=== PATIENT | female | born 1975 | race Caucasian/White ===

== ENCOUNTER 2018-02-01 11:51 | Observation (INO) ==
[2018-02-01 11:57] VITALS: TEMP 97.8
[2018-02-01 12:34] LABS: Baso % (Auto) 0.3 % (0.0-2.0); Eos % (Auto) 0.6 % (0.0-4.0); Hematocrit 39.9 % (35.0-46.0); Lymph # (Auto) 0.6 th/mm3 (1.0-4.8); Lymph % (Auto) 11.5 % (9.0-44.0); Mean Corpuscular HGB Conc 35.1 % (32.0-36.0); Mean Corpuscular Hemoglobin 33.1 pg (27.0-34.0); Mean Corpuscular Volume 94.1 fL (80.0-100.0); Mean Platelet Volume 7.9 fL (7.0-11.0); Mono # (Auto) 0.4 th/mm3 (0.0-0.9); Mono % (Auto) 8.1 % (0.0-8.0); Neut # (Auto) 4.3 th/mm3 (1.8-7.7); Neut % (Auto) 79.5 % (16.0-70.0); Platelet Count 155 th/mm3 (150-450); Red Blood Count 4.24 mil/mm3 (4.00-5.30); Red Cell Distribution Width 13.3 % (11.6-17.2); White Blood Count 5.3 th/mm3 (4.0-11.0)
[2018-02-01 12:38] LABS: Bilirubin,Urine Negative (Negative); Clarity,Urine Clear (Clear); Color,Urine Straw (Yellw/Straw); Glucose,Urine (UA) Negative (Negative); Leukocyte Esterase,Urine Negative (Negative); Nitrite,Urine Negative (Negative); Specific Gravity,Urine Less/Equal 1.005 (1.002-1.035); Urobilinogen,Urine 0.2 mg/dL (Less than 2)
[2018-02-01] MEDS ORDERED: Ketorolac Inj 30 MG/ML (IVP) Vial IV.PUSH ONE (12:40)
[2018-02-01 12:50] LABS: Collection Time,Urine 1210 hours
[2018-02-01 12:51] LABS: Amorphous Sediment,Urine Moderate /hpf; RBC,Urine 0-3 /hpf (0-3); Squamous Epithelial Cell,Urine 0-5 /hpf (0-5)
[2018-02-01 13:04] LABS: Alanine Aminotransferase 84 U/L (10-53); Albumin 4.3 g/dL (3.4-5.0); Alkaline Phosphatase 84 U/L (45-117); Anion Gap 16 meq/L (5-15); Aspartate Aminotransferase 72 U/L (15-37); Blood Urea Nitrogen 7 mg/dL (7-18); Calcium 9.3 mg/dL (8.5-10.1); Carbon Dioxide 26.5 meq/L (21.0-32.0); Chloride 76 meq/L (98-107); Glomerular Filtration Rate Greater Than 89 mL/min (>89); Glucose,Random 93 mg/dL (74-106); Lipase 102 U/L (73-393); Potassium 3.1 meq/L (3.5-5.1); Total Protein 7.5 g/dL (6.4-8.2)
[2018-02-01 13:07] LABS: Sodium 118 meq/L (136-145)
--- NOTE | 2018-02-01 13:11 | ED ---
HPI General Chief complaint: Nausea/Vomiting/Diarrhea Stated complaint: lower back pain/ n/v Time Seen by Provider: 02/01/18 12:05 Source: patient Mode of arrival: ambulatory Limitations: no limitations History of Present Illness HPI narrative: Is a 42-year-old woman presents to the emergency department complaining of low back pain with nausea and vomiting, worse in the right flank , ongoing for couple days. She started her menstrual cycle couple days ago. She had similar pain about a month ago also associated at the same time as her menstrual cycle, seen at an urgent care and felt to have a renal stone. Did not have any imaging at that time. No history of kidney stones before. No history of dysmenorrhea and endometriosis or other menstrual menstrual cycles are regular. Pain is been intermittent, associated with nausea, no significant vomiting. Otherwise had been feeling generally well and healthy. Related Data Home Medications Medication Instructions Recorded Confirmed hydrochlorothiazide 12.5 mg PO DAILY 02/01/18 02/01/18 lisinopril 20 mg PO DAILY 02/01/18 02/01/18 Allergies Allergy/AdvReac Type Severity Reaction Status Date / Time No Known Allergies Allergy Verified 02/01/18 11:53 Review of Systems ROS: all other systems reviewed are negative [facility] Medical History Medical History Anxiety (Acute) Hypertension (Acute) Kidney stones (Acute) Surgical History Surgical History History of tonsillectomy (Acute) Social History Social History Substance History: No History of Abuse Second Hand Smoke Exposure: No Smoking Status: Former smoker Tobacco Type: Cigarettes How Often Do You Have a Drink Containing Alcohol: 4 or more times a week Recent Travel in [facility] within the Last 8 Weeks: No Recent Out of Country Travel within the Last 8 Weeks: No Immunization History Tetanus Immunization: Unsure Hx Influenza Vaccine This Season: No Exam Narrative Exam Narrative: GENERAL: Well-appearing 42-year-old woman, no acute distress. SKIN: Focused skin assessment warm/dry. HEAD: Atraumatic. Normocephalic. EYES: Pupils equal and round. No scleral icterus. No injection or drainage. ENT: No nasal bleeding or discharge. Mucous membranes pink and moist. NECK: Trachea midline. No JVD. CARDIOVASCULAR: Regular rate and rhythm. No murmur appreciated. RESPIRATORY: No accessory muscle use. Clear to auscultation. Breath sounds equal bilaterally. GASTROINTESTINAL: Abdomen soft, non-tender, nondistended. Hepatic and splenic margins not palpable. MUSCULOSKELETAL: No obvious deformities. No clubbing. No cyanosis. No edema. NEUROLOGICAL: Awake and alert. No obvious cranial nerve deficits. Motor grossly within normal limits. Normal speech. PSYCHIATRIC: Appropriate mood and affect; insight and judgment normal. Course Initial Documented Vital Signs Temperature 97.8 F 02/01/18 11:54 Pulse Rate 97 H 02/01/18 11:54 Respiratory Rate 14 02/01/18 11:54 Blood Pressure 155/100 H 02/01/18 11:54 Pulse Oximetry 100 02/01/18 11:54 Last Documented Vital Signs Temperature 97.8 F 02/01/18 11:54 Pulse Rate 92 H 02/01/18 14:24 Respiratory Rate 20 02/01/18 14:24 Blood Pressure 170/110 H 02/01/18 14:24 Pulse Oximetry 99 02/01/18 14:24 Medical Decision Making MDM Narrative Medical decision making narrative: 42-year-old woman, well-appearing, flank pain , so associated with her menstrual cycle, unclear etiology. Renal stone seems possible but relation to menstrual cycle would then be incidental. Endometriosis also possible. Will check labs, CT for renal stone, urinalysis, reassess. FINAL: Etiology abdominal pain is unclear. No stone. She does have hepatic steatosis. Likely understated alcohol use, hyponatremia, she does take diuretics also, she has worsening anxiety with abnormal vital signs suggestive of alcohol withdrawal. We will plan on admission, [facility] protocol, rehydration , recheck sodium. Medical Screen Exam Complete: Yes Emergency Medical Condition: Yes Lab Data Result diagrams: 02/01/18 12:00 02/01/18 13:25 POC Results POC Urine Results Negative Lab Results 02/01/18 02/01/18 02/01/18 Range/Units 12:00 12:00 12:00 CBC w Diff Auto diff final WBC 5.3 (4.0-11.0) th/mm3 RBC 4.24 (4.00-5.30) mil/mm3 Hgb 14.0 (11.6-15.3) gm/dL Hct 39.9 (35.0-46.0) % MCV 94.1 (80.0-100.0) fL MCH 33.1 (27.0-34.0) pg MCHC 35.1 (32.0-36.0) % RDW 13.3 (11.6-17.2) % Plt Count 155 (150-450) th/mm3 MPV 7.9 (7.0-11.0) fL Neut % (Auto) 79.5 H (16.0-70.0) % Lymph % (Auto) 11.5 (9.0-44.0) % [place] % (Auto) 8.1 H (0.0-8.0) % Eos % (Auto) 0.6 (0.0-4.0) % Baso % (Auto) 0.3 (0.0-2.0) % Neut # (Auto) 4.3 (1.8-7.7) th/mm3 Lymph # (Auto) 0.6 L (1.0-4.8) th/mm3 [place] # (Auto) 0.4 (0.0-0.9) th/mm3 Eos # (Auto) 0.0 (0.0-0.4) th/mm3 Baso # (Auto) 0.0 (0.0-0.2) th/mm3 WBC Differential . Differential Comment . Sodium 118 L* (136-145) meq/L Potassium 3.1 L (3.5-5.1) meq/L Chloride 76 L (98-107) meq/L Carbon Dioxide 26.5 (21.0-32.0) meq/L Anion Gap 16 H (5-15) meq/L BUN 7 (7-18) mg/dL Creatinine 0.63 (0.50-1.00) mg/dL Estimated GFR Greater than 89 (>89) mL/min Random Glucose 93 (74-106) mg/dL Calcium 9.3 (8.5-10.1) mg/dL Total Bilirubin 1.4 H (0.2-1.0) mg/dL AST 72 H (15-37) U/L ALT 84 H (10-53) U/L Alkaline Phosphatase 84 (45-117) U/L Total Protein 7.5 (6.4-8.2) g/dL Albumin 4.3 (3.4-5.0) g/dL Lipase 102 (73-393) U/L Ur Collection Type Clean catch Urine Color Straw (Yellw/Straw) Urine Clarity Clear (Clear) Urine pH 6.0 (5.0-8.5) Ur Specific [place] Less/equal 1.005 (1.002-1.035) Urine Protein Negative (Neg-Trace) mg/dL Urine Glucose (UA) Negative (Negative) mg/dL Urine Ketones Negative (Negative) mg/dL Urine Occult Blood Trace (Negative) Urine Nitrate Negative (Negative) Urine Bilirubin Negative (Negative) Urine Urobilinogen 0.2 (Less than 2) mg/dL Ur Leukocyte Esterase Negative (Negative) Urine RBC 0-3 (0-3) /hpf Ur Squamous Epith Cells 0-5 (0-5) /hpf Amorphous Sediment Moderate H (None) /hpf Micro UA Comment Culture not ind Ur Microscopic Review Microscopic reviewed Urine Culture Comments Culture not ind Urine Collection Time 1210 hours 02/01/18 Range/Units 13:25 CBC w Diff WBC (4.0-11.0) th/mm3 RBC (4.00-5.30) mil/mm3 Hgb (11.6-15.3) gm/dL Hct (35.0-46.0) % MCV (80.0-100.0) fL MCH (27.0-34.0) pg MCHC (32.0-36.0) % RDW (11.6-17.2) % Plt Count (150-450) th/mm3 MPV (7.0-11.0) fL Neut % (Auto) (16.0-70.0) % Lymph % (Auto) (9.0-44.0) % [place] % (Auto) (0.0-8.0) % Eos % (Auto) (0.0-4.0) % Baso % (Auto) (0.0-2.0) % Neut # (Auto) (1.8-7.7) th/mm3 Lymph # (Auto) (1.0-4.8) th/mm3 [place] # (Auto) (0.0-0.9) th/mm3 Eos # (Auto) (0.0-0.4) th/mm3 Baso # (Auto) (0.0-0.2) th/mm3 WBC Differential Differential Comment Sodium 120 L* (136-145) meq/L Potassium 3.4 L (3.5-5.1) meq/L Chloride 78 L (98-107) meq/L Carbon Dioxide 26.5 (21.0-32.0) meq/L Anion Gap 16 H (5-15) meq/L BUN 7 (7-18) mg/dL Creatinine 0.62 (0.50-1.00) mg/dL Estimated GFR Greater than 89 (>89) mL/min Random Glucose 84 (74-106) mg/dL Calcium 8.9 (8.5-10.1) mg/dL Total Bilirubin (0.2-1.0) mg/dL AST (15-37) U/L ALT (10-53) U/L Alkaline Phosphatase (45-117) U/L Total Protein (6.4-8.2) g/dL Albumin (3.4-5.0) g/dL Lipase (73-393) U/L Ur Collection Type Urine Color (Yellw/Straw) Urine Clarity (Clear) Urine pH (5.0-8.5) Ur Specific [place] (1.002-1.035) Urine Protein (Neg-Trace) mg/dL Urine Glucose (UA) (Negative) mg/dL Urine Ketones (Negative) mg/dL Urine Occult Blood (Negative) Urine Nitrate (Negative) Urine Bilirubin (Negative) Urine Urobilinogen (Less than 2) mg/dL Ur Leukocyte Esterase (Negative) Urine RBC (0-3) /hpf Ur Squamous Epith Cells (0-5) /hpf Amorphous Sediment (None) /hpf Micro UA Comment Ur Microscopic Review Urine Culture Comments Urine Collection Time hours Imaging Data Radiologist's impression: Abdomen/Pelvis CT 02/01/18 12:23 CONCLUSION: 1. No abnormality is identified to explain the right flank pain. No renal stones are identified. 2. Severe hepatic steatosis. Discharge Plan Discharge Disposition Patient Disposition: 30 Still Patient Physicians Team ED Provider: Ricardo Juarez Primary Care Provider: Primary Care Lesly Carrion Rxs /Orders / Referrals /Forms Prescriptions: No Action lisinopril 20 mg Tablet 20 mg PO DAILY RF: 0 hydrochlorothiazide 12.5 mg Tablet 12.5 mg PO DAILY RF: 0 Discharge Interventions Interventions: Vital Signs Last Done: 02/01/18 14:24 Status ED Status: With Doctor
[2018-02-01 13:56] LABS: Anion Gap 16 meq/L (5-15); Blood Urea Nitrogen 7 mg/dL (7-18); Calcium 8.9 mg/dL (8.5-10.1); Carbon Dioxide 26.5 meq/L (21.0-32.0); Chloride 78 meq/L (98-107); Glomerular Filtration Rate Greater Than 89 mL/min (>89); Glucose,Random 84 mg/dL (74-106); Potassium 3.4 meq/L (3.5-5.1)
[2018-02-01 13:58] LABS: Sodium 120 meq/L (136-145)
[2018-02-01 14:25] VITALS: RESP 20; O2SAT 99
--- NOTE | 2018-02-01 14:27 | CT ---
EXAM DATE: 02/01/2018 1:59 PM EDT AGE/SEX: 42 years / Female INDICATIONS: Low back and right flank pain x 2 days. Nausea and vomiting. CLINICAL DATA: This is the patient's initial encounter. Patient reports that signs and symptoms have been present for 2 days and indicates a pain score of 7/10. MEDICAL/SURGICAL HISTORY: Renal calculi. Hypertension. None. RADIATION DOSE: 5.07 CTDI (mGy) COMPARISON: No prior exams available for comparison. TECHNIQUE: Multiple contiguous axial images were obtained through the abdomen. Images were obtained using multiple row detector helical technique. Using automated exposure control and adjustment of the mA and/or kV according to patient size, radiation dose was kept as low as reasonably achievable to o btain optimal diagnostic quality images. DICOM format image data is available electronically for rev iew and comparison. FINDINGS: Lower chest: No acute abnormality is identified. Hepatobiliary: The liver demonstrates severe diffuse low-density. No focal lesion is appreciated on t his noncontrast examination. No calcified gallstones are present. Kidneys: No hydronephrosis, stone, or mass. Adrenal Glands: Within normal limits. Spleen: Within normal limits. Pancreas: Within normal limits. Vascular: The aorta is nonaneurysmal. Bowel/Mesentery: The stomach and small bowel demonstrate no abnormality. No acute colon abnormality i s seen. There is no free intraperitoneal air or fluid. The appendix is normal. Abdominal Wall: No hernia is visualized. Navel piercing is present. Retroperitoneum: No lymphadenopathy. Bladder: No wall thickening or mass. Reproductive: Within normal limits. Inguinal: No lymphadenopathy or hernia. Musculoskeletal: No acute osseous abnormality is identified. CONCLUSION: 1. No abnormality is identified to explain the right flank pain. No renal stones are identified. 2. Severe hepatic steatosis. Electronically signed by: Delvis Toro MD 02/01/2018 2:26 PM EDT
[2018-02-01] MEDS ORDERED: Sod Chloride 0.9% Inj 1,000 ML IV.SIG SCH (14:45)
[2018-02-01] MEDS ORDERED: Haloperidol Inj 5 MG/ML Ampul IV.PUSH PRN ×2 (14:54→15:10)
[2018-02-01] MEDS ORDERED: LORazepam 1 MG Tablet PO PRN (14:54)
[2018-02-01] MEDS ORDERED: Sod Chloride 0.9% Inj 1,000 ML IV.CONT SCH (15:00)
[2018-02-01 15:09] VITALS: BP 170/113; PULSE 90
[2018-02-01] MEDS ORDERED: chlordiazePOXIDE 25 MG Capsule PO STA (15:24)
== END 2018-02-01 15:45 | disposition left against medical advice (07) ==
LOC: PHED 11:51 → PHEDA 14:55 → INTOOBSV 14:55 → PHEDA 15:45
PROVIDERS: ADMIT Hospitalist; ATTEND Hospitalist